=== PATIENT | male | born 1995 | race Caucasian/White ===

== ENCOUNTER 2020-09-19 15:51 | Emergency (ER) | payer MEDICAID, SELFPAY ==
[2020-09-19 15:52] VITALS: BP 161/83; PULSE 104; RESP 14; TEMP 36.7; O2SAT 96; BMI 26.4
--- NOTE | 2020-09-19 16:00 | NURSING ---
patient declined social work referral for help with home health or Assited Living or Independent Living after discussing benefits and the risks he has at home
--- NOTE | 2020-09-19 16:05 | EDS_ITS ---
HPI History of Present Illness HPI Narrative: Patient presents with left ankle injury that occurred today. Patient stepped in a hole while running and twisted his left ankle. Patient states he has a history of prior fractures in that ankle. Patient states he has plates and screws in the ankle. Patient states he also had tendon and ligament injuries which were repaired years ago. Patient states the pain radiates up to his left knee. Patient admits to some decreased sensation in his left foot. Patient also admits to some weakness in his left foot. Patient states the pain is sharp. Patient states pain is worse with any movement or weightbearing. Chief Complaint: Lower Extremity Injury Informant: patient Onset/Context/Timing Onset: Today and Hours (1) Context: Sudden Onset Timing: Continuous Quality of Pain: Sharp Location: Left ankle Worsened by: Weightbearing, movement, ambulation Relieved by: Rest Associated Symptoms Associated Symptoms: Positive for Parasthesia and Weakness PFSH PFSH Home Medications oxycodone-acetaminophen 1 tab PO Q6H PRN PRN 3 Days #12 tablet 09/19/20 [Rx Last Taken Unknown] Allergy/AdvReac Type Severity Reaction Status Date / Time No Known Allergies Allergy Verified 09/19/20 15:52 Surgical History History of ankle surgery Social History Smoking Status: Never smoker ROS ROS ED Constitutional Constitutional ED: Denies chills or fever(s) Eyes Eyes: Denies blurry vision or change in vision ENT ENT ED: Denies rhinorrhea or sore throat Cardiovascular Cardiovascular: Denies chest pain or palpitations Respiratory/Chest Respiratory/Chest: Denies cough or dyspnea Gastrointestinal Gastrointestinal: Denies nausea or vomiting Genitourinary Genitourinary ED: Denies dysuria or hematuria Musculoskeletal Musculoskeletal: Denies back pain or neck pain Integumentary Denies abscess or rash Neurologic Neurologic: Reports weakness; Denies headache(s) Allergic/Immunologic Allergic/Immunologic ED: Denies mouth swelling or urticaria EXAM Physical Exam Const Vital Signs: 09/19/20 15:52 Temperature 98.1 F Temperature Source Temporal Pulse Rate 104 H Respiratory Rate 14 Blood Pressure 161/83 H Blood Pressure Mean 109 Pulse Ox 96 Oxygen Delivery Method Room Air Positive well nourished HEENT normocephalic and atraumatic Neck full ROM Extremity Extremity Narrative: There is tenderness, edema, and mild ecchymosis over the lateral aspect of the left ankle. There is also tenderness over the medial malleolus. There is no obvious deformity. There is tenderness over the proximal fibula. There is no tenderness over the fifth metatarsal. Pedal pulses are equal bilaterally. Range of motion was limited in all motions of the left ankle secondary to pain. MDM MDM MDM Narrative Medical decision making narrative: Patient was given injection of morphine. X-r ays of the left ankle were obtained. There are 3 views. On my interpretation, there is a small avulsion fracture of the distal fibula. There is no dislocation. There is moderate soft tissue swelling. Radiologist also interpreted the x-rays and agrees. X-rays of the left tibia and fibula were obtained. There are 2 views. On my interpretation, there is no acute fracture. There is no dislocation. There is no soft tissue swelling. Radiologist also interpreted the x-rays and agrees. Patient was given crutches. Patient was given a walking boot. Patient was given a prescription for Percocet. Patient was given a dose here. Patient was instructed to ice and elevate the left ankle. Patient was given referral for orthopedics. Patient understood and was agreeable with the plan. All questions were answered. Radiography Diagnostic Testing: Radiology Impression Ankle X-Ray 09/19/20 16:20 IMPRESSION: 1. Distal fibular avulsion fracture with overlying soft tissue swelling. Age indeterminate. 2. Prior operative changes. Electronically Signed: Jarrell Robles MD (Brooks) at 16:39 EDT , Service support , Tibia/Fibula X-Ray 09/19/20 16:20 IMPRESSION: 1. Distal fibular avulsion fracture with overlying soft tissue swelling. Age indeterminate. 2. Prior operative changes. Electronically Signed: Jarrell Robles MD (Brooks) at 16:39 EDT , Service support , Discharge Plan Triage Chief Complaint: Lower Extremity Injury ED Provider: Urbano Sanchez Dx/Rx/DC Orders Clinical Impression: Closed avulsion fracture of distal end of left fibula Instructions: ED Ankle Fracture, Distal Fibula Prescriptions: New oxycodone-acetaminophen [oxycodone-acetaminophen] 1 TABLET tablet 1 tab PO Q6H PRN PRN (Reason: Pain) 3 Days Qty: 12 RF: 0 Primary Care Provider: Care Physician,No Primary Referrals: Dino Harris MD [STAFF PHYSICIAN] - 3-5 Days Care Physician,No Primary [Primary Care Provider] - Disposition Disposition: Home, Self Care
[2020-09-19] MEDS: Morphine 4 MG/ML Syringe IM (16:11)
--- NOTE | 2020-09-19 16:15 | ED.RN ---
Injury occured today while at [employer] were there was a stage and blow up events for kids. A gopher hole, or similar hole, was in the ground and no markings or warnings. Patient was walking and his foot went into the hold, causing him to fall and his left ankle snapped and felt his ligament tear. He has no movement in toes and cannot feel anything. Reports h/o ankle sx
--- NOTE | 2020-09-19 16:20 | RAD_ITS ---
STUDY: X-RAY - LEFT TIBIA AND FIBULA REASON FOR EXAM: Male, 25 years old. Injury/Pain TECHNIQUE: 2 view(s) of the tibia and fibula were obtained. COMPARISON: None. FINDINGS: Normal visualized tibia. Fixation anchor out the distal fibula. Relatively well-corticated avulsion density along the inferior margin of the fibula. The soft tissue structures are unremarkable. RAD/Tibia & Fibula 2 Views IMPRESSION: 1. Distal fibular avulsion fracture with overlying soft tissue swelling. Age indeterminate. 2. Prior operative changes. Electronically Signed: Jarrell Robles MD (Brooks) at 16:39 EDT , Service support ,
--- NOTE | 2020-09-19 16:20 | RAD_ITS ---
STUDY: X-RAY - LEFT ANKLE REASON FOR EXAM: Male, 25 years old. Injury/Pain TECHNIQUE: 3 view(s) of the ankle. COMPARISON: None. FINDINGS: Fixation anchor out the distal fibula. Relatively well-corticated avulsion density along the inferior margin of the fibula. Normal tibiotalar articulation and ankle mortise. Normal visualized talus and calcaneus. The visualized subtalar, talonavicular, calcaneocuboid and tarsal articulations are normal. Lateral ankle soft tissue swelling. RAD/Ankle min 3 Views IMPRESSION: 1. Distal fibular avulsion fracture with overlying soft tissue swelling. Age indeterminate. 2. Prior operative changes. Electronically Signed: Jarrell Robles MD (Brooks) at 16:39 EDT , Service support ,
[2020-09-19] MEDS: oxyCODONE 5 MG Tablet PO (17:18)
== END 2020-09-19 17:46 | disposition home or self-care (01) ==
PROVIDERS: Emergency Provider Emergency Medicine
DX: S82.832A Other fracture of upper and lower end of left fibula, initial encounter for closed fracture (principal); Y93.02 Activity, running; X50.1XXA Overexertion from prolonged static or awkward postures, initial encounter
CPT/HCPCS: 73590; 73610; 96372; 99284; A4216

== ENCOUNTER 2020-10-30 02:06 | Emergency (ER) | payer MEDICAID, SELFPAY ==
[2020-10-30 02:07] VITALS: BP 145/78; PULSE 117; RESP 18; TEMP 37.3; O2SAT 96; BMI 29.5
--- NOTE | 2020-10-30 02:20 | RAD_ITS ---
STUDY: X-RAY - LEFT ANKLE REASON FOR EXAM: Male, 25 years old. pain TECHNIQUE: 3 view(s) of the ankle. COMPARISON: 09/19/2020 FINDINGS: Postoperative changes of the distal fibula/lateral. There is unchanged fracture involving the tip of the distal fibula. Otherwise normal Visualized distal tibia and fibula. Normal medial and lateral malleoli. Normal tibiotalar articulation and ankle mortise. Normal visualized talus and calcaneus. The visualized subtalar, talonavicular, calcaneocuboid and tarsal articulations are normal. There is soft tissue swelling surrounding the ankle mortise appears to the lateral malleolus, decreased in the interval. RAD/Ankle min 3 Views IMPRESSION: Postoperative changes of the distal fibula with unchanged tip of the fibula fracture as described. Improved soft tissue swelling. No new fracture seen. Electronically Signed: Neeta Salazar MD at 2:43 EDT , Service support ,
--- NOTE | 2020-10-30 02:47 | EDS_ITS ---
HPI History of Present Illness Chief Complaint: Lower Extremity Injury Informant: patient Narrative Narrative: Patient states he was just walking and rolled his left ankle. He has pain more on the medial side and some on the lateral side. In 2013 this patient had significant injury to the ankle playing basketball. He ended up having surgery for reattachment of ligaments and tendons. He has had instability since. About 6 weeks ago he rolled the ankle in football. He had x-rays done here. These x-rays show distal fibular avulsion fracture of uncertain age. Patient evidently did follow-up with orthopedics. He had a couple visits and repeat x-rays. He was going to physical therapy but felt as though it did not do anything so he stopped going. He has not been wearing his splint. He was slowly doing better until this event tonight. He had no other injury tonight. The ankle is sore with palpation or weightbearing gets better with rest. PFSH PFSH Home Medications naproxen [Naprosyn] 500 mg PO BID PRN #20 tab 10/30/20 [Rx Last Taken Unknown] Allergy/AdvReac Type Severity Reaction Status Date / Time No Known Allergies Allergy Verified 10/30/20 02:10 Surgical History History of ankle surgery Social History Smoking Status: Former smoker ROS ROS ED Constitutional Constitutional ED: Denies chills or fever(s) Gastrointestinal Gastrointestinal: Denies nausea or vomiting Musculoskeletal Musculoskeletal: Reports arthralgias and other Details: See history of present illness ; Denies back pain or neck pain Integumentary Denies Abrasions or rash Neurologic Neurologic: Denies paresthesias or weakness Hematologic/Lymphatic Hematologic/Lymphatic: Denies easy bleeding or easy bruising EXAM Physical Exam Const Vital Signs: 10/30/20 02:07 Temperature 99.1 F Temperature Source Temporal Pulse Rate 117 H Respiratory Rate 18 Blood Pressure 145/78 H Blood Pressure Mean 100 Pulse Ox 96 Oxygen Delivery Method Room Air Positive well developed General Appearance ED: well developed and NAD HEENT normocephalic and atraumatic Chest Wall inspection of chest normal Resp normal respiratory effort Back/Spine no CVA tenderness Extremity Extremity Narrative: Left ankle does have tenderness medially and laterally. Lateral side has a little more swelling but medial side is slightly more tender. 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 Achilles is also intact by palpation and Vogel test. Calcaneus is nontender. Fifth metatarsal is nontender. I see no deformity. Distal sensation capillary refill is intact. General Extremety ED: Negative for cyanosis or edema General Extremity: Negative for cyanosis or edema Neuro no sensory deficits noted Sensorium / Orientation: alert Psych mental status grossly normal Skin no wounds Lesions: no lesions Rashes: no rashes Trauma: Negative for abrasion MDM MDM MDM Narrative Medical decision making narrative: Three-view x-ray of the ankle looked at my me and read by radiology show the same distal fibula changes as before. This is n ot any difference. There are signs of prior surgery consistent with his history. No sign of acute fracture. This patient likely has unstable ankle from multiple injuries and prior surgery with ligamentous and tendon disruptions. I think long-term physical therapy for strengthening is a good idea. He feels it was not beneficial. I will write him for nonsteroidals. We will put him in a [employer] for support. I think he needs to see orthopedics again. Radiography Diagnostic Testing: Radiology Impression Ankle X-Ray 10/30/20 02:20 IMPRESSION: Postoperative changes of the distal fibula with unchanged tip of the fibula fracture as described. Improved soft tissue swelling. No new fracture seen. Electronically Signed: Neeta Salazar MD at 2:43 EDT , Service support , Discharge Plan Triage Chief Complaint: Lower Extremity Injury ED Provider: Nikko Goldman Dx/Rx/DC Orders Clinical Impression: Closed avulsion fracture of distal end of left fibula Instructions: ED Ankle Sprain (Adult) Prescriptions: New naproxen [Naprosyn] 500 mg tablet 500 mg PO BID PRN (Reason: pain) Qty: 20 RF: 0 Primary Care Provider: Care Physician,No Primary Referrals: Jake Shannon DPM [STAFF PHYSICIAN] - 3-5 Days Care Physician,No Primary [Primary Care Provider] - Disposition Disposition: Home, Self Care
[2020-10-30] MEDS: Naproxen 375 MG Tablet PO (03:37)
[2020-10-30 05:02] VITALS: RESP 14
== END 2020-10-30 06:44 | disposition home or self-care (01) ==
PROVIDERS: Emergency Provider Emergency Medicine
DX: S82.832A Other fracture of upper and lower end of left fibula, initial encounter for closed fracture (principal); X50.9XXA Other and unspecified overexertion or strenuous movements or postures, initial encounter; Y93.01 Activity, walking, marching and hiking; Y92.9 Unspecified place or not applicable; Y99.9 Unspecified external cause status; Z87.891 Personal history of nicotine dependence; Z79.1 Long term (current) use of non-steroidal anti-inflammatories (NSAID)
CPT/HCPCS: 73610; 99285

== ENCOUNTER 2021-04-15 16:22 | Emergency (ER) | payer MEDICAID, SELFPAY ==
[2021-04-15 16:23] VITALS: BP 172/96; PULSE 97; RESP 16; TEMP 36.4; O2SAT 100; BMI 28.3
--- NOTE | 2021-04-15 16:32 | EKG12_ITS ---
Test Reason : CP Blood Pressure : / mmHG Vent. Rate : 085 BPM Atrial Rate : 085 BPM P-R Int : 152 ms QRS Dur : 078 ms QT Int : 382 ms P-R-T Axes : 073 057 026 degrees QTc Int : 454 ms Normal sinus rhythm Normal ECG Confirmed by ZENOBIA SAMANO, ELIE ([id number]), manager editorial BALDO ALEX ([id number]) on 04/19/2021 10:54:12 AM Referred By: TL Confirmed By:ELIE FREGOSO MD
--- NOTE | 2021-04-15 17:04 | NURSING ---
NO OLD EKGS
--- NOTE | 2021-04-15 17:30 | ED.VIS.CHEST ---
HPI History of Present Illness Chief Complaint: Palpitations Narrative Narrative: 25-year-old male presenting with palpitations. He states that today before going to work at about 6 AM he drank 1 energy drink which had 300 mg of caffeine. He states he does do this periodically. About 10 AM he drank another half of energy drink. He started to experience acid reflux which was mild. Patient had no vomiting. He denies chest pressure or pleuritic chest pain. Patient states that he does not typically drink this much caffeine. Patient does state that his boss wanted him to come to checked out earlier however he wanted to finish his shift and did so. He has no cardiac history. No early heart disease history in his family. No risk factors for DVT/PE. PFSH PFSH Home Medications NK 04/15/21 [History Last Taken Unknown] Allergy/AdvReac Type Severity Reaction Status Date / Time No Known Allergies Allergy Verified 04/15/21 16:25 Surgical History History of ankle surgery Social History Smoking Status: Former smoker ROS ROS ED Constitutional Constitutional ED: Denies chills or fever(s) Eyes Eyes: Denies blurry vision or change in vision ENT ENT ED: Denies rhinorrhea or sore throat Cardiovascular Cardiovascular: Reports palpitations and racing heartbeat Respiratory/Chest Respiratory/Chest: Denies cough or dyspnea Gastrointestinal Gastrointestinal: Reports other Details: Dyspepsia ; Denies abdominal pain or nausea Genitourinary Genitourinary ED: Denies dysuria or hematuria Musculoskeletal Musculoskeletal: Denies back pain, myalgias or neck pain Integumentary Denies rash Neurologic Neurologic: Denies headache(s) or weakness Psychiatric Psychiatric: Reports anxiety; Denies depression EXAM Physical Exam Const Vital Signs: 04/15/21 16:23 04/15/21 17:55 Temperature 97.6 F L Temperature Source Temporal Pulse Rate 97 88 Respiratory Rate 16 17 Blood Pressure 172/96 H 148/78 H Blood Pressure Mean 121 Pulse Ox 100 98 Oxygen Delivery Method Room Air Positive well nourished General Appearance ED: NAD; Negative for pallor HEENT Reports moist mucous membranes normocephalic and atraumatic Eyes PERRL and EOMs intact bilaterally Chest Wall inspection of chest normal Resp normal respiratory effort Effort and Inspection: respiratory distress Cardio regular rate and regular rhythm GI normal to inspection, nondistended, normoactive bowel sounds Extremity normal to inspection General Extremety ED: Negative for edema or tenderness General Extremity: Negative for edema Neuro oriented x3, CN's II-XII intact bilaterally and no sensory deficits noted Sensorium / Orientation: awake and alert Motor Exam: strength 5/5 throughout Psych Psych Narrative: Patient's mentation is normal although he does appear to be a little bit anxious and does admit to this. Skin General Skin Exam: Negative for jaundice or pallor MDM MDM MDM Narrative Medical decision making narrative: 25-year-old male with no significant past medical history presenting with palpitations after drinking 450 mg of caffeine. He states that he was able to finish his shift without difficulty. He complains of dyspepsia. His blood pressure is elevated at 172/96. He does report that he previously had an elevated blood pressure distantly and did not follow-up for this. He does not recall what this was although it is difficult to evaluate his blood pressure and near term since he is had 450 mg caffeine prior to evaluation. I did obtain an EKG which is normal sinus rhythm at 85 bpm without sign of ischemic change. I did certified lactation counselor the patient that he should not drink this much caffeine and should probably discontinue caffeine and keep a blood pressure diary so that he can have an accurate blood pressure when he follows up since he has a history of elevated blood pressures. I do not believe the patient needs blood work or imaging currently. I did certified lactation counselor him that if his symptoms do not improve after the caffeine wears off he should return for repeat evaluation. Impression: 1. Palpitations 2. Dyspepsia 3. Elevated blood pressure/hypertension to be established Discharge Plan Triage Chief Complaint: Palpitations ED Provider: Curtis Brooks Dx/Rx/DC Orders Instructions: ED Hypertension, To Be Confirmed, ED Palpitations Prescriptions: No Action NK RF: 0 Primary Care Provider: Care Physician,No Primary Referrals: Milena Mc MD [STAFF PHYSICIAN] - As soon as possible Care Physician,No Primary [Primary Care Provider] - Disposition Disposition: Home, Self Care Discharge Date/Time: 04/15/21 17:56
[2021-04-15 17:55] VITALS: BP 148/78; PULSE 88; RESP 17; O2SAT 98
== END 2021-04-15 17:56 | disposition home or self-care (01) ==
PROVIDERS: Emergency Provider Student in an Organized Health Care Education/Training Program; Visit Provider Student in an Organized Health Care Education/Training Program
DX: R00.2 Palpitations (principal); R10.13 Epigastric pain; I10 Essential (primary) hypertension; Z87.891 Personal history of nicotine dependence
CPT/HCPCS: 93005; 99283; A4216